=== PATIENT | female | born 1985 | race Caucasian/White ===

== ENCOUNTER 2017-01-04 20:38 | Emergency (ER) | payer OTHER ==
[~2017-01-04] VITALS: Ht 167.6 cm; Wt 73.0 kg
[~2017-01-04 20:38] MED LIST: AMIT10TA6 PO; CLON1TAB3 PO; HYDR25TA5 PO; LEVO25TA5 PO; NZRSHM TOP; TOPI25TA55 PO
[2017-01-04 20:40] VITALS: TEMP 36.9; Ht 167.6 cm; Wt 73.0 kg
[2017-01-04] MEDS ORDERED: AMOXICILLIN 250 MG CAP PO STA (20:51)
[2017-01-04] MEDS ORDERED: BENZOCAINE 20% (ORAJEL) 11.9 GM TUBE MT STA (20:51)
[2017-01-04] MEDS ORDERED: KETOROLAC TROMETHAMINE 60 MG/2 ML VIAL IM STA (20:51)
--- NOTE | 2017-01-04 21:42 | DIAGNOSTIC IMAGING REPORT ---
RIGHT SHOULDER 3 VIEWS HISTORY: Right shoulder pain. COMPARISON: Right shoulder 07/21/2014. FINDINGS: There is no fracture or dislocation. Soft tissues are unremarkable. No radiopaque foreign bodies. Postoperative changes again seen within the glenoid. The right clavicle is intact. IMPRESSION: No fractures. Electronically signed by: Stuart So M.D. 01/04/2017 9:40 PM Dictated Date/Time: 01/04/2017 9:39 PM
[2017-01-04] MEDS ORDERED: OXYCODONE IR HOME PACK PO ONE (21:45)
[2017-01-04] MEDS ORDERED: AMOX500C3 PO (21:45)
[2017-01-04 21:54] VITALS: BP 152/101; PULSE 111; O2SAT 98
--- NOTE | 2017-01-04 23:57 | EMERGENCY ROOM VISIT NOTE ---
History First contact with patient: 20:46 Chief Complaint: SHOULDER PAIN Stated Complaint: ABCESS TOOTH,SHOULDER PAIN AND NUMBNESS History of Present Illness The patient is a 31 year old female who presents to the Emergency Room with complaints of dental pain for the past several days is gotten progressively worse who has not seen a dentist in over a year and right shoulder pain after her daughter fell on her. She described pain as aching, ranging in severity 6 out of 10. Nothing makes it better or worse. Patient denies chest pain, neck pain, back pain, clavicular pain, elbow pain, numbness, tingling, dyspnea, fever , chills, facial swelling, vomiting, diarrhea, neck stiffness, weakness. She is tolerate by mouth fluids and food. Patient does see orthopedics. She's had prior surgery on this right shoulder. Review of Systems See HPI for pertinent positives & negatives. A total of 10 systems reviewed and were otherwise negative. Past Medical/Surgical History Medical Problems: (1) Chronic low back pain (2) Hypothyroidism (3) Migraine Social History Smoking Status: Current Every Day Smoker Alcohol Use: none Marital Status: single Housing Status: other Occupation Status: unemployed Current/Historical Medications Scheduled Amoxicillin (Amoxil), 500 MG PO TID Scheduled PRN Ibuprofen (Motrin), 800 MG PO Q8H PRN for Migraine Allergies Coded Allergies: Cephalexin (Verified Allergy, Unknown, Mood swings, hives, 10/03/14) Codeine (Verified Allergy, Unknown, vomiting, 10/03/14) Physical Exam Vital Signs Date Time Temp Pulse Resp B/P Pulse Ox O2 Delivery O2 Flow Rate FiO2 01/04/17 21:54 111 20 152/101 98 Room Air 01/04/17 20:40 36.9 111 20 152/102 99 Pain Rating (0-10): 4.0 Physical Exam VITALS: Vitals are noted on the nurse's note and reviewed by myself. Vital signs stable. GENERAL: Pleasant female, in no acute distress, nondiaphoretic, well-developed well-nourished. SKIN: The skin was without rashes, erythema, edema, or bruising. There is no tenting of the skin. Capillary reflex less than 2 seconds. HEAD: Normocephalic atraumatic. EARS: External auditory canals clear, tympanic membranes pearly may without erythema or effusion bilaterally. EYES: Pupils equal round and reactive to light and accommodation. Conjunctivae without injection, sclerae without icterus. Extraocular movements intact. NOSE: Patent, turbinates without inflammation or discharge. No sinus tenderness. MOUTH: Mucous membranes moist. Pharynx without erythema or exudate. Uvula midline. Airway patent. Tongue does not deviate. Dental exam: Multiple missing teeth with extensive dental decay with no palpable abscess. no signs of Bishnu angina NECK: Supple without nuchal rigidity. No lymphadenopathy. No thyromegaly. Cervical spine is nontender. No JVD. HEART: Regular rate and rhythm without murmurs gallops or rubs. LUNGS: Clear to auscultation bilaterally without wheezes, rales or rhonchi. No dullness to percussion. No retractions or accessory muscle use. ABDOMEN: Positive bowel sounds x 4. Normal tympanic percussion. Soft, nontender, without masses or organomegaly. Urbano sign negative. No guarding or rebound tenderness. MUSCULOSKELETAL: No muscle atrophy, erythema, or edema noted. Right shoulder tender to palpation with increased pain, no clavicular pain, no humeral pain, no elbow pain. Full range of motion with increased pain. NEURO: Patient was alert and oriented to person place and time. Normal sensation to light and sharp touch. No focal neurological deficits. Medical Decision & Procedures Medications Administered Medications (Trade) Dose Ordered Sig/Lucy Route Start Time Stop Time Status Last Admin Dose Admin Ketorolac Tromethamine (Toradol Inj) 60 mg NOW STAT IM 01/04/17 20:51 01/04/17 20:52 DC 01/04/17 21:46 60 MG Amoxicillin (Amoxil Cap) 500 mg NOW STAT PO 01/04/17 20:51 01/04/17 20:52 DC 01/04/17 21:46 500 MG Benzocaine (Orajel 2% Oral Gel) 1 appln NOW STAT MT 01/04/17 20:51 01/04/17 20:52 DC 01/04/17 21:46 1 APPLN Oxycodone HCl (Roxicodone Immediate Rel 5MG Home Pack) 1 homepack UD ONCE PO 01/04/17 21:45 01/04/17 21:46 DC 01/04/17 21:52 1 HOMEPACK ED Course Prior records reviewed and summarized as above. Triage Nursing notes reviewed. The patient's history was concerning for dental pain and shoulder pain Differential diagnosis: Etiologies such as cellulitis, abscess, Bishnu angina, gingivitis, sprain, strain, fracture, as well as others were entertained.. Physical examination: The physical examination was consistent with dental pain from dental caries and right shoulder pain from daughter falling on her ER treatment provided: Amoxicillin, oral gel, Toradol On reassessment the patient felt better. Diagnostics interpreted by me: Imaging studies: RIGHT SHOULDER 3 VIEWS HISTORY: Right shoulder pain. COMPARISON: Right shoulder 07/21/2014. FINDINGS: There is no fracture or dislocation. Soft tissues are unremarkable. No radiopaque foreign bodies. Postoperative changes again seen within the glenoid. The right clavicle is intact. IMPRESSION: No fractures. Electronically signed by: Stuart So M.D. This appears to be and dental pain from dental caries and right shoulder injury. Patient is advised follow-up with her orthopedist in a few days and to see the dentist. She is counseled on proper dental hygiene. Patient was neurovascularly and neurologic intact. No signs of airway compromise or Bishnu angina. She is advised take medications as directed and to follow-up as directed and to return to the ER immediately for fevers, severe pain, facial sign, no numbness, tingling, worsening signs or symptoms or as needed. By the evaluation outlined above emergent etiologies such as abscess, Bishnu angina, fracture, as well as others were deemed relatively unlikely. The pt informed about the findings as listed above. All questions were answered and pleased with the treatment. Return instructions were outlined and the patient was discharged in stable condition. Outpatient prescription management: Amoxicillin Referral: The patient was referred back to dentist and orthopedics for follow-up in 2 to 3 days for a recheck of the current condition. Medical Decision As above Impression Primary Impression: Dental cavities Additional Impressions: Right shoulder pain Pain, dental Departure Information Dispostion Home / Self-Care Condition GOOD Prescriptions Amoxicillin (AMOXIL) 500 Mg Cap 500 MG PO TID, #30 CAP Prov: Lanie Javier .NICOLA 01/04/17 Forms HOME CARE DOCUMENTATION FORM, IMPORTANT VISIT INFORMATION Patient Instructions Visit Dental, [facility] Additional Instructions Amoxicillin 500mg: Take one pill 3 times daily for 10 days for your infection. All antibiotics can cause diarrhea. If this occurs and you feel worse or it does not resolve in 1-2 days follow up with your doctor or return to the Emergency Department as this could be signs of serious underlying problems. Any medication can cause an allergic reaction, stop the pills immediately and return to the ER for rash, hives, breathing difficulties, or swelling. Oxycodone (OxyIR) 5mg: Take 1-2 pills every four hours for breakthrough pain. Avoid alcohol, operating machinery or dangerous equipment, working on ladders or roofs, DRIVING, or situations where being under the influence may be dangerous. It is recommended to use an [id number] stool softener such as Colace, 100mg twice daily while taking this medication to avoid constipation. Ibuprofen(Motrin, Advil) may be used for fever or pain. Use 600mg every six hours as needed. Take with food. Avoid using more than 2400mg in a 24 hour period. Do not use 2400mg per day for more than three consecutive days without physician direction. Prolonged inappropriate use can lead to stomach upset or ulcers. This medication can be taken if you need to drive, work, or perform activities which may be dangerous when taking narcotic pain medication. (AND/OR) Acetaminophen(Tylenol) may be used for fever or pain. Use 1000mg every six hours as needed. Avoid using more than 3000mg in a 24 hour period. This medication can be taken if you need to drive, work, or perform activities which may be dangerous when taking narcotic pain medication. Sawyer teeth twice a day, floss daily and do warm saltwater gargles 3 times a day. See a dentist as soon as possible for definitive care for your dental problem. Return to ER sooner for facial swelling, fever, redness, worsening signs or symptoms or as needed. See your orthopedist for your ongoing shoulder problems. Return to ER sooner for severe pain, numbness, tingling, worsening signs or symptoms or as needed. Problem Qualifiers Additional Impressions: Right shoulder pain Chronicity: acute Qualified Codes: M25.511 - Pain in right shoulder
[2017-02-04] MEDS ORDERED: IBUP-1428 PO (21:10)
== END 2017-01-04 22:07 | disposition home or self-care (01) ==
LOC: C.EDB 20:40 → C.EDD 22:07
DX: K02.9 Dental caries, unspecified (principal); M25.511 Pain in right shoulder; K08.89 Other specified disorders of teeth and supporting structures; E03.9 Hypothyroidism, unspecified; G89.29 Other chronic pain; F17.200 Nicotine dependence, unspecified, uncomplicated; Z88.5 Allergy status to narcotic agent; Z88.8 Allergy status to other drugs, medicaments and biological substances

== ENCOUNTER 2017-02-04 22:14 | Emergency (ER) | payer OTHER ==
[~2017-02-04] VITALS: Ht 167.6 cm; Wt 73.4 kg
[~2017-02-04 22:14] MED LIST changes: -AMIT10TA6 PO; -CLON1TAB3 PO; -HYDR25TA5 PO; +IBUP-1428 PO; -LEVO25TA5 PO; -NZRSHM TOP; -TOPI25TA55 PO
[2017-02-04 22:16] VITALS: TEMP 36.7; Ht 167.6 cm; Wt 73.4 kg
[2017-02-04] MEDS ORDERED: PSEUDOEPHEDRINE HCL 30 MG TAB PO STA (22:25)
[2017-02-04] MEDS ORDERED: OXYCODONE IR HOME PACK PO ONE (22:30)
[2017-02-04] MEDS ORDERED: OXYMETAZOLINE HCL 0.05% NA SPR 15 ML BTL ONE (22:30)
[2017-02-04] MEDS ORDERED: AMOXICIL/CLAVU 875MG HOME PACK PO ONE (22:30)
[2017-02-04] MEDS ORDERED: AMOX875T PO (22:31)
[2017-02-04] MEDS ORDERED: PSEU30TA20 PO (22:31)
[2017-02-04 22:56] VITALS: BP 130/97; PULSE 99; O2SAT 100
--- NOTE | 2017-02-05 05:19 | EMERGENCY ROOM VISIT NOTE ---
History First contact with patient: 22:21 Chief Complaint: SINUS CONGESTION/PRESSURE Stated Complaint: SINUS PRESURE, EAR, JAW, MOUTH PAIN Nursing Triage Summary: sinus congestion and mouth abcess History of Present Illness The patient is a 32 year old female who presents to the Emergency Room with complaints of sinus pain and congestion for the past several days who has a ongoing dental infection and has an appointment this month with dentistry down in [place] for dental extraction. Patient has yellow-green nasal discharge. Subjective fever and chills. Patient feels as if she has a sinus infection again. Patient denies chest pain, dyspnea, sore throat, neck stiffness, abdominal pain, earache, vomiting, diarrhea, facial swelling. Review of Systems See HPI for pertinent positives & negatives. A total of 10 systems reviewed and were otherwise negative. Past Medical/Surgical History Medical Problems: (1) Chronic low back pain (2) Hypothyroidism (3) Migraine Social History Smoking Status: Current Every Day Smoker Alcohol Use: none Marital Status: single Housing Status: other Occupation Status: unemployed Current/Historical Medications Scheduled Amoxicillin & Pot Clavulanate (Augmentin 875-125 mg), 1 TAB PO BID Pseudoephedrine (Sudafed), 60 MG PO Q6 Scheduled PRN Ibuprofen (Motrin), 800 MG PO Q8H PRN for Migraine Allergies Coded Allergies: Cephalexin (Verified Allergy, Unknown, Mood swings, hives, 10/03/14) Codeine (Verified Allergy, Unknown, vomiting, 10/03/14) Physical Exam Vital Signs Date Time Temp Pulse Resp B/P (MAP) Pulse Ox O2 Delivery O2 Flow Rate FiO2 02/04/17 22:56 99 16 130/97 100 02/04/17 22:16 36.7 107 16 145/106 100 Room Air Pain Rating (0-10): 5.0 Physical Exam VITALS: Vitals are noted on the nurse's note and reviewed by myself. Vital signs hypertensive GENERAL: Pleasant female, in no acute distress, nondiaphoretic, well-developed well-nourished. SKIN: The skin was without rashes, erythema, edema, or bruising. There is no tenting of the skin. Capillary reflex less than 2 seconds. HEAD: Normocephalic atraumatic. EARS: External auditory canals clear, tympanic membranes pearly may without erythema or effusion bilaterally. EYES: Pupils equal round and reactive to light and accommodation. Conjunctivae without injection, sclerae without icterus. Extraocular movements intact. NOSE: Patent, turbinates without inflammation or discharge. Bilateral maxillary sinus tenderness. MOUTH: Mucous membranes moist. Pharynx without erythema or exudate. Uvula midline. Airway patent. Tongue does not deviate. Dental exam: Multiple missing teeth with no palpable abscess dental decay. No Bishnu angina NECK: Supple without nuchal rigidity. No lymphadenopathy. No thyromegaly. Cervical spine is nontender. No JVD. No meningeal signs HEART: Regular rate and rhythm without murmurs gallops or rubs. LUNGS: Clear to auscultation bilaterally without wheezes, rales or rhonchi. No dullness to percussion. No retractions or accessory muscle use. ABDOMEN: Positive bowel sounds x 4. Normal tympanic percussion. Soft, nontender, without masses or organomegaly. Urbano sign negative. No guarding or rebound tenderness. MUSCULOSKELETAL: No muscle atrophy, erythema, or edema noted. NEURO: Patient was alert and oriented to person place and time. Normal sensation to light and sharp touch. No focal neurological deficits. Medical Decision & Procedures Medications Administered Medications (Trade) Dose Ordered Sig/Lucy Route Start Time Stop Time Status Last Admin Dose Admin Amoxicillin/ Clavulanate Potassium (Augmentin 875MG Home Pack) 1 homepack UD ONCE PO 02/04/17 22:30 02/04/17 22:31 DC 02/04/17 22:50 1 HOMEPACK Pseudoephedrine HCl (Sudafed Tab) 60 mg NOW STAT PO 02/04/17 22:25 02/04/17 22:27 DC 02/04/17 22:50 60 MG Oxycodone HCl (Roxicodone Immediate Rel 5MG Home Pack) 1 homepack UD ONCE PO 02/04/17 22:30 02/04/17 22:31 DC 02/04/17 22:50 1 HOMEPACK Oxymetazoline HCl (Afrin 0.05% Nasal [place]) 1 sprays NOW ONCE NA 02/04/17 22:30 02/04/17 22:31 DC 02/04/17 22:50 1 SPRAYS ED Course Prior records reviewed and summarized as above. Triage Nursing notes reviewed. The patient's history was concerning for sinus pain with dental infection Differential diagnosis: Etiologies such as cellulitis, abscess, sinusitis, Bishnu angina, gingivitis, viral infection, otitis, as well as others were entertained.. Physical examination: The physical examination was consistent with sinusitis with dental infection ER treatment provided: Augmentin On reassessment the patient felt better. Diagnostics interpreted by me: Deferred This appears to be sinusitis with ongoing dental infection. Patient was started on antibiotics. She is advised to follow-up as scheduled with dentistry and family care doctor in a few days or here in the ER sooner for high fevers, neck stiffness, facial swelling, worsening signs or symptoms or as needed. Patient no signs of meningitis. She is well-appearing. By the evaluation outlined above emergent etiologies such as abscess, Bishnu angina, as well as others were deemed relatively unlikely. The pt informed about the findings as listed above. All questions were answered and pleased with the treatment. Return instructions were outlined and the patient was discharged in stable condition. Outpatient prescription management: Augmentin Referral: The patient was referred back to the dentist and primary care physician for follow-up in 2 to 3 days for a recheck of the current condition. Medical Decision As above Impression Primary Impression: Acute maxillary sinusitis Additional Impression: Dental caries Departure Information Dispostion Home / Self-Care Condition FAIR Prescriptions Pseudoephedrine (Sudafed) 30 Mg Tab 60 MG PO Q6, #20 TAB Prov: Lanie Javier PA-C 02/04/17 Amoxicillin & Pot Clavulanate (Augmentin 875-125 mg) 1 Tab Tab 1 TAB PO BID for 9 Days, #18 TAB Prov: Lanie Javier .NICOLA 02/04/17 Forms WORK / SCHOOL INSTRUCTIONS, HOME CARE DOCUMENTATION FORM, IMPORTANT VISIT INFORMATION Patient Instructions Sinusitis Acute, Visit Dental, [facility] Additional Instructions Augmentin 875 mg: Take one pill 2 times daily for 10 days for your infection. All antibiotics can cause diarrhea. If this occurs and you feel worse or it does not resolve in 1-2 days follow up with your doctor or return to the Emergency Department as this could be signs of serious underlying problems. Any medication can cause an allergic reaction, stop the pills immediately and return to the ER for rash, hives, breathing difficulties, or swelling. Afrin nasal spray: 2-3 sprays to each nostril twice daily as needed for congestion. Do not use for more than 3-4 days because it can lead to worsening rebound congestion. Pseudoephedrine(Sudaphed): 30-60mg every 6 hours as needed for nasal congestion. Do not take this with other stimulant products or supplements. Rest and drink plenty of fluids. Controlling your fever with Tylenol and Ibuprofen as above will make you feel better. Wash your hands after nose blowing, sneezing, or coughing. Most germs are spread through contact, therefore improper hygiene may result in your close contacts and loved ones becoming ill just like you. Continue current medications. Oxycodone (OxyIR) 5mg: Take 1-2 pills every four hours for breakthrough pain. Avoid alcohol, operating machinery or dangerous equipment, working on ladders or roofs, DRIVING, or situations where being under the influence may be dangerous. It is recommended to use an [id number]-[id number] stool softener such as Colace, 100mg twice daily while taking this medication to avoid constipation. Ibuprofen(Motrin, Advil) may be used for fever or pain. Use 600mg every six hours as needed. Take with food. Avoid using more than 2400mg in a 24 hour period. Do not use 2400mg per day for more than three consecutive days without physician direction. Prolonged inappropriate use can lead to stomach upset or ulcers. This medication can be taken if you need to drive, work, or perform activities which may be dangerous when taking narcotic pain medication. (AND/OR) Acetaminophen(Tylenol) may be used for fever or pain. Use 1000mg every six hours as needed. Avoid using more than 3000mg in a 24 hour period. This medication can be taken if you need to drive, work, or perform activities which may be dangerous when taking narcotic pain medication. Ecru teeth twice a day, floss daily and do warm saltwater gargles 3 times a day. See a dentist as soon as possible for definitive care for your dental problem. Return to ER sooner for facial swelling, fever, redness, worsening signs or symptoms or as needed. and Return to the ER for severe headache, neck stiffness, chest pain, difficulty breathing, fevers, vomiting, worsening of your condition, or as needed. Follow up with your primary physician this week for a recheck of your current condition. Problem Qualifiers Primary Impression: Acute maxillary sinusitis Recurrence: recurrent Qualified Codes: J01.01 - Acute recurrent maxillary sinusitis
== END 2017-02-04 22:55 | disposition home or self-care (01) ==
LOC: C.EDB 22:16 → C.EDA 22:55
DX: J01.01 Acute recurrent maxillary sinusitis (principal); K02.9 Dental caries, unspecified; M54.5 Low back pain; G89.29 Other chronic pain; E03.9 Hypothyroidism, unspecified; F17.210 Nicotine dependence, cigarettes, uncomplicated

== ENCOUNTER 2017-03-16 16:28 | Emergency (ER) | payer OTHER ==
[~2017-03-16] VITALS: Ht 167.6 cm; Wt 73.1 kg
[~2017-03-16 16:28] MED LIST changes: +PSEU30TA20 PO
[2017-03-16 16:37] VITALS: Ht 167.6 cm; Wt 73.1 kg
[2017-03-16] MEDS ORDERED: ACET325T96 PO (16:46)
[2017-03-16] MEDS ORDERED: AMOXICILLIN/CLAVULANATE TAB 875 MG TAB PO STA (16:57)
[2017-03-16] MEDS ORDERED: HYDROCODONE/ACETAMOPHEN 5/325MG TAB PO STA (16:57)
[2017-03-16] MEDS ORDERED: AMOX875T PO (17:00)
[2017-03-16] MEDS ORDERED: HYDR-5688 PO (17:00)
--- NOTE | 2017-03-16 17:02 | EMERGENCY ROOM VISIT NOTE ---
ED Visit Note First contact with patient: 16:43 CHIEF COMPLAINT: Toothache HISTORY OF PRESENT ILLNESS: This 32-year-old female patient presented to the emergency department via private vehicle with a progressive toothache for past 2 weeks. The patient believes it is coming from left upper dentition. The pain is now steady and severe and radiates to the face. The patient has a dentist appointment set up for April 19. They rate their pain a 9/10 and the ibuprofen and Tylenol they have been taking has not relieved the pain. Denies facial swelling or fever. The patient denies any discharge from the mouth. REVIEW OF SYSTEMS: A 6 system review of systems was completed with positives and pertinent negatives listed in the HPI. ALLERGIES: as noted below MEDICATIONS: as noted below PMH: Bronchitis, Tubal ligation, depression, anxiety SOCIAL HISTORY: Lives at home with parents and son PHYSICAL EXAM: Vitals are noted on the nurse's note and reviewed by myself. Vital signs stable. Temperature 36.8C orally. GENERAL: 32 year old female, in no acute distress, nondiaphoretic, well-developed well-nourished. Mouth: The left upper dentition is very carious and the gum is swollen and tender around it, without any discharge or signs of an abscess. The remainder of the pharynx and tonsils are without erythema, edema, or exudate. The airway is patent. There is no facial swelling, cervical or submandibular lymphadenopathy. The patient appears uncomfortable and in pain. The patient has overall poor dental hygiene. EARS: External auditory canals clear, tympanic membranes pearly may without erythema or effusion bilaterally. ED COURSE: Patient was seen and evaluated as above. After obtaining a thorough history and physical examination was evident the patient is likely experiencing pain secondary to poor dentalgia. No evidence of abscess. No evidence of Bishnu angina, or encephalitis on exam. She'll be discharged home on a course of amoxicillin/cold-like acid, she notes that she can tolerate penicillins. The patient she'll be given [place]. She was checked in the intensive any drug monitoring system, no red flags were identified. She indicated that despite her codeine allergy, she can tolerate this medication. She has an appointment scheduled for April 19 with her dentist. She is to return with worsening. She was educated upon worrisome symptoms which return, had questions answered prior to discharge, and was discharged home in good condition. In the evaluation and treatment of this patient, the following differential diagnoses were considered: Periapical Abscess, Osteonecrosis of the Jaw, Dental Fracture, Dental Caries, Bishnu's Angina, Vincent's Angina, Facial Cellulitis. Problem List Medical Problems: (1) Chronic low back pain Status: Chronic (2) Hypothyroidism Status: Chronic (3) Migraine Status: Chronic Current/Historical Medications Scheduled Acetaminophen Tab (Tylenol), 650 MG PO UD Amoxicillin & Pot Clavulanate (Augmentin 875-125 mg), 1 TAB PO BID Scheduled PRN Hydrocodone/Acetaminophen 5MG/325MG ([place] 5MG/325MG), 1-2 TABLET PO Q6 PRN for Pain Ibuprofen (Motrin), 800 MG PO Q8H PRN for Migraine Allergies Coded Allergies: Clindamycin (Unverified Allergy, Intermediate, RASH/ITCHNG, 03/16/17) Cephalexin (Verified Allergy, Unknown, Mood swings, hives, 03/16/17) Codeine (Verified Allergy, Unknown, vomiting, 03/16/17) Vital Signs Date Time Temp Pulse Resp B/P (MAP) Pulse Ox O2 Delivery O2 Flow Rate FiO2 03/16/17 17:16 36.8 81 18 142/91 99 03/16/17 17:15 81 18 142/91 99 Room Air 03/16/17 16:37 36.8 89 18 150/99 99 Room Air Medications Administered Medications (Trade) Dose Ordered Sig/Lucy Route Start Time Stop Time Status Last Admin Dose Admin Acetaminophen/ Hydrocodone Bitart ([place] 5/325 Tab) 1 tab NOW STAT PO 03/16/17 16:57 03/16/17 16:59 DC 03/16/17 17:09 1 TAB Amoxicillin/ Clavulanate Potassium (Augmentin Tab) 875 mg NOW STAT PO 03/16/17 16:57 03/16/17 16:59 DC 03/16/17 17:09 875 MG Departure Information Impression Primary Impression: Tooth pain with chewing Additional Impression: Dental caries Dispostion Home / Self-Care Condition GOOD Prescriptions Amoxicillin & Pot Clavulanate (Augmentin 875-125 mg) 1 Tab Tab 1 TAB PO BID for 10 Days, #20 TAB Prov: Miguel Walker, PAAida 03/16/17 Hydrocodone/Acetaminophen 5MG/325MG ([place] 5MG/325MG) Tab 1-2 TABLET PO Q6 Y for Pain, #15 TAB For Initial Treatment Prov: Miguel Walker PA-C 03/16/17 Referrals No Doctor, Assigned (PCP) Patient Instructions My [facility] Additional Instructions You have been treated in the Emergency Department for Dental Pain. You have received pain medicine in the emergency department which impairs your ability to operate a vehicle. It is illegal for you to drive after receiving these medicines. You have been prescribed NORCO to be used for pain control. This is a narcotic medication. You cannot drive or consume alcohol while on this medicine. This medicine should only be used for pain that cannot be controlled with over-the- counter pain medicines. PLEASE NO TYLENOL WITH THIS!! You were prescribed Augmentin to be taken every 12 hours. This is an antibiotic. All antibiotics have the potential to cause diarrhea. Stop this medication and contact a medical provider if you were to develop any significant adverse side effects including: wheezing, shortness of breath, passing out, vomiting, or a diffuse rash. Always take antibiotics as directed and COMPLETE the ENTIRE course regardless of the improvement of your symptoms. For pain control, you can use the following jfch-tjt-vownzbf medicines (if >12 yo): - Regular strength (325mg/tab) Tylenol (acetaminophen) 2 tabs every 4-6 hours as needed. Do not exceed 12 tablets in a 24 hour period. Avoid taking more than 3 grams (3000 mg) of Tylenol per day. This includes any other sources of acetaminophen you may take on a regular basis. No tylenol with the norco!! - Regular strength (200 mg/tab) Advil (ibuprofen) 1-2 tabs every 4-6 hours as needed. Do not exceed a dose of 3200 mg per day. Refrain from smoking cigarettes or using chewing tobacco until you have been evaluated by your dentist. Keeping beverages lukewarm and consuming soft foods can decrease your pain. Warm compresses over the affected area may offer some relief. You MUST seek evaluation of your dental pain by a dentist following your visit to the Emergency Department. The Emergency Department is not capable of treating dental issues long-term. You should call your dentist as soon as possible to make an appointment for evaluation of your dental pain. Return to the emergency department if you develop the following symptoms despite treatment course outlined above: fever, intractable pain, increased redness, swelling, or purulent discharge. Please keep your appointment with the dentist. Please return to the emergency department any new/concerning symptoms. Problem Qualifiers
[2017-03-16 17:16] VITALS: BP 142/91; PULSE 81; TEMP 36.8; O2SAT 99
== END 2017-03-16 17:17 | disposition home or self-care (01) ==
LOC: C.EDB 16:30 → C.EDD 17:17
DX: K08.89 Other specified disorders of teeth and supporting structures (principal); K02.9 Dental caries, unspecified; E03.9 Hypothyroidism, unspecified; M54.5 Low back pain

== ENCOUNTER 2017-03-31 16:34 | Emergency (ER) | payer OTHER ==
[~2017-03-31] VITALS: Ht 167.6 cm; Wt 73.4 kg
[~2017-03-31 16:34] MED LIST changes: +ACET325T96 PO; +HYDR-5688 PO; -PSEU30TA20 PO
[2017-03-31 17:12] VITALS: TEMP 36.8; Ht 167.6 cm; Wt 73.4 kg
[2017-03-31] MEDS ORDERED: PENI500T2 PO (17:48)
[2017-03-31] MEDS ORDERED: HYDR-5688 PO (17:48)
--- NOTE | 2017-03-31 17:49 | EMERGENCY ROOM VISIT NOTE ---
ED Visit Note First contact with patient: 17:22 CHIEF COMPLAINT: Toothache, fever HISTORY OF PRESENT ILLNESS: This 32-year-old female patient presented to the emergency department, ambulatory, with a progressive toothache for past 2 months. The patient believes it is coming from an abscess in her left upper gum. The pain is now steady and severe and radiates to the face. The patient states she did have a fever of 102.3F this morning. She took Tylenol at that time for her fever and pain, which did help bring the fever down, but did not help with the pain as much. The patient went to work this morning, and states she feels that the "bubble popped" while at work. The patient was seen here earlier this month for the same problem and was prescribed antibiotics and pain medication at that time. The patient does have a dentist appointment set up on April 06. They rate their pain a 8/10 and the ibuprofen and Tylenol they have been taking has not relieved the pain. Denies facial swelling, but does feel that the swelling is radiating around her face. The patient denies any discharge from the mouth. REVIEW OF SYSTEMS: A 6 system review of systems was completed with positives and pertinent negatives listed in the HPI. ALLERGIES: Cephalexin, clindamycin MEDICATIONS: None PMH: Dental abscess SOCIAL HISTORY: Was locally with family. She denies drug, alcohol use. The patient states she does smoke one half pack cigarettes per day. PHYSICAL EXAM: Vitals are noted on the nurse's note and reviewed by myself. Vital signs stable. Temperature 36.8C orally. GENERAL: This is a otherwise healthy, 32-year-old female, in no acute distress, nondiaphoretic, well- developed well-nourished. Mouth: The #11 and #12 teeth is very carious and the gum is swollen and tender around it, without any discharge. There is a possible small abscess on palpation of the upper gum. The remainder of the pharynx and tonsils are without erythema, edema, or exudate. The airway is patent. There is no facial swelling, cervical or submandibular lymphadenopathy. The patient appears uncomfortable and in pain. The patient has overall poor dental hygiene. EARS: External auditory canals clear, tympanic membranes pearly may without erythema or effusion bilaterally. ED COURSE: She was seen and evaluated as above. I discussed with her management of dental abscesses including antibiotics and pain medication. I discussed with the patient the importance of keeping her appointment with the dentist next week, as the emergency department is not the most appropriate place for obtaining care regarding dental infections. The patient was in agreement with the plan of care at this time. The patient was discharged home in good condition. DIFFERENTIAL DIAGNOSIS: Dental abscess, odontalgia, malignancy, acute sinusitis , and others DIAGNOSIS: Dental abscess DISCHARGE INSTRUCTIONS & TREATMENT: You have been treated in the Emergency Department for Dental Pain. You have been prescribed [place] to be used for pain control. This is a narcotic medication. You cannot drive or consume alcohol while on this medicine. This medicine should only be used for pain that cannot be controlled with over-the- counter pain medicines. You were prescribed PEN VK to be taken 3 times daily. This is an antibiotic. All antibiotics have the potential to cause diarrhea. Stop this medication and contact a medical provider if you were to develop any significant adverse side effects including: wheezing, shortness of breath, passing out, vomiting, or a diffuse rash. Always take antibiotics as directed and COMPLETE the ENTIRE course regardless of the improvement of your symptoms. For pain control, you can use the following gvwd-gkn-rqgheny medicines (if >12 yo): - Regular strength (325mg/tab) Tylenol (acetaminophen) 2 tabs every 4-6 hours as needed. Do not exceed 12 tablets in a 24 hour period. Avoid taking more than 4 grams (4000 mg) of Tylenol per day. This includes any other sources of acetaminophen you may take on a regular basis. - Regular strength (200 mg/tab) Advil (ibuprofen) 1-2 tabs every 4-6 hours as needed. Do not exceed a dose of 3200 mg per day. Refrain from smoking cigarettes or using chewing tobacco until you have been evaluated by your dentist. Keeping beverages lukewarm and consuming soft foods can decrease your pain. Warm compresses over the affected area may offer some relief. You MUST seek evaluation of your dental pain by a dentist following your visit to the Emergency Department. The Emergency Department is not capable of treating dental issues long-term. You should call your dentist as soon as possible to make an appointment for evaluation of your dental pain. Return to the emergency department if you develop the following symptoms despite treatment course outlined above: fever, intractable pain, increased redness, swelling, or purulent discharge. Problem List Medical Problems: (1) Chronic low back pain Status: Chronic (2) Hypothyroidism Status: Chronic (3) Migraine Status: Chronic Current/Historical Medications Scheduled Acetaminophen Tab (Tylenol), 650 MG PO UD Penicillin V Potassium (Veetids), 500 MG PO TID Scheduled PRN Hydrocodone/Acetaminophen 5MG/325MG ([place] 5MG/325MG), 1 TABLET PO Q6H PRN for Pain Ibuprofen (Motrin), 800 MG PO Q8H PRN for Migraine Allergies Coded Allergies: Clindamycin (Unverified Allergy, Intermediate, RASH/ITCHNG, 03/31/17) Cephalexin (Verified Allergy, Unknown, Mood swings, hives, 03/31/17) Codeine (Verified Allergy, Unknown, vomiting, 03/31/17) Vital Signs Date Time Temp Pulse Resp B/P (MAP) Pulse Ox O2 Delivery O2 Flow Rate FiO2 03/31/17 17:12 36.8 93 18 163/107 100 Room Air Departure Information Impression Primary Impression: Periapical abscess Dispostion Home / Self-Care Condition GOOD Prescriptions Hydrocodone/Acetaminophen 5MG/325MG ([place] 5MG/325MG) Tab 1 TABLET PO Q6H Y for Pain, #12 TAB For Initial Treatment Prov: Meche Flanneyr PA-C 03/31/17 Penicillin V Potassium (VEETIDS) 500 Mg Tab 500 MG PO TID for 10 Days, #30 TAB Prov: Meche Flannery PA-C 03/31/17 Referrals Jose Philip [facility] (PCP) Patient Instructions ED Abscess Dental, [facility] Additional Instructions You have been treated in the Emergency Department for Dental Pain. You have been prescribed [place] to be used for pain control. This is a narcotic medication. You cannot drive or consume alcohol while on this medicine. This medicine should only be used for pain that cannot be controlled with over-the- counter pain medicines. You were prescribed PEN VK to be taken 3 times daily. This is an antibiotic. All antibiotics have the potential to cause diarrhea. Stop this medication and contact a medical provider if you were to develop any significant adverse side effects including: wheezing, shortness of breath, passing out, vomiting, or a diffuse rash. Always take antibiotics as directed and COMPLETE the ENTIRE course regardless of the improvement of your symptoms. For pain control, you can use the following nyiz-nzo-zawqlpi medicines (if >12 yo): - Regular strength (325mg/tab) Tylenol (acetaminophen) 2 tabs every 4-6 hours as needed. Do not exceed 12 tablets in a 24 hour period. Avoid taking more than 4 grams (4000 mg) of Tylenol per day. This includes any other sources of acetaminophen you may take on a regular basis. - Regular strength (200 mg/tab) Advil (ibuprofen) 1-2 tabs every 4-6 hours as needed. Do not exceed a dose of 3200 mg per day. Refrain from smoking cigarettes or using chewing tobacco until you have been evaluated by your dentist. Keeping beverages lukewarm and consuming soft foods can decrease your pain. Warm compresses over the affected area may offer some relief. You MUST seek evaluation of your dental pain by a dentist following your visit to the Emergency Department. The Emergency Department is not capable of treating dental issues long-term. You should call your dentist as soon as possible to make an appointment for evaluation of your dental pain. Return to the emergency department if you develop the following symptoms despite treatment course outlined above: fever, intractable pain, increased redness, swelling, or purulent discharge.
[2017-03-31 18:40] VITALS: BP 158/108; PULSE 86; O2SAT 100
== END 2017-03-31 18:40 | disposition home or self-care (01) ==
LOC: C.EDB 16:36 → C.EDD 18:40
DX: K04.7 Periapical abscess without sinus (principal); E03.9 Hypothyroidism, unspecified; G89.29 Other chronic pain; Z88.5 Allergy status to narcotic agent; Z88.8 Allergy status to other drugs, medicaments and biological substances

== ENCOUNTER 2017-04-12 09:15 | Emergency (ER) | payer OTHER ==
[~2017-04-12] VITALS: Ht 162.6 cm; Wt 74.0 kg
[2017-04-12 09:18] VITALS: TEMP 36.4; Ht 162.6 cm; Wt 74.0 kg
[2017-04-12] MEDS ORDERED: SODIUM CHLORIDE 0.9% 1000ML 1,000 ML IV ONE (09:45)
[2017-04-12] MEDS ORDERED: OXYC1TAB3 PO (09:58)
--- NOTE | 2017-04-12 10:12 | DIAGNOSTIC IMAGING REPORT ---
CHEST ONE VIEW PORTABLE HISTORY: near syncope COMPARISON: None. FINDINGS: The lungs are clear. Cardiac silhouette is normal in size. No pleural effusions. No pneumothorax. IMPRESSION: No acute process. Electronically signed by: Stuart So M.D. 04/12/2017 10:11 AM Dictated Date/Time: 04/12/2017 10:10 AM
[2017-04-12 10:16] LABS: URINE APPEARANCE CLEAR (CLEAR); URINE BILIRUBIN NEG (NEG); URINE COLOR DK YELLOW; URINE NITRITE NEG (NEG); URINE SPECIFIC GRAVITY 1.032 (1.000-1.030); UROBILINOGEN NEG (NEG)
[2017-04-12 10:21] LABS: MANUAL MICROSCOPIC REQUIRED? NO; REVIEW REQ? NO
[2017-04-12 10:32] LABS: BASO % 0.2 %; BASO ABS # 0.01 K/uL (0-0.2); COMPLETE YES; HEMATOCRIT 41.1 % (37-47); IG% 0.2 %; LYMPH % 43.6 %; LYMPH ABS # 1.97 K/uL (1.2-3.4); MEAN CELL VOLUME 94.1 fL (80-100); MEAN CORPUSCULAR HGB CONC 34.1 g/dl (32-36); MEAN PLATELET VOLUME 10.4 fL (7.4-10.4); PLATELET COUNT 196 K/uL (130-400); RED BLOOD COUNT 4.37 M/uL (4.2-5.4); WHITE BLOOD COUNT 4.52 K/uL (4.8-10.8)
[2017-04-12 10:53] LABS: BLOOD UREA NITROGEN 16 mg/dl (7-18); CREATININE 0.83 mg/dl (0.60-1.20); GLUCOSE 93 mg/dl (70-99)
[2017-04-12 10:54] LABS: ALT/SGPT 13 U/L (12-78); AST/SGOT 9 U/L (15-37); BUN/CREATININE RATIO 19.3 (10-20); CALCIUM 8.2 mg/dl (8.5-10.1); CARBON DIOXIDE 28 mmol/L (21-32); CHLORIDE 107 mmol/L (98-107); SODIUM 139 mmol/L (136-145)
[2017-04-12 10:56] LABS: ALKALINE PHOSPHATASE 63 U/L (45-117)
[2017-04-12 12:16] VITALS: BP 130/86; PULSE 72; O2SAT 96
--- NOTE | 2017-04-12 18:13 | EMERGENCY ROOM VISIT NOTE ---
ED Visit Note First contact with patient: 09:22 Chief Complaint: I feel shaky and like I'm going to pass out. History of Present Illness: Ms. Caceres is a 32-year-old white female who ambulates into the ED complaining of feeling ill and reports a near syncopal episode. Patient reports historically since she's been a child she has had multiple episodes of syncope. She reports she has had multiple tests but no cause of her syncope has been identified. Her last true syncopal episode was approximately 6 months ago. Patient reports she's been feeling fine over the last week. She reports she was driving to work today and noted spots in her visual farrar, she started feeling "shaky and sweaty and felt like she was going to pass out." This occurred approximately one hour before she arrived in the emergency department. Currently she reports she is still feeling shaky and nauseated but has had resolution of sensations of syncope, spots in her vision and diaphoresis. She has not taken any medications for her symptoms prior to arrival at the hospital. She did not identify any aggravating or alleviating factors related to her symptoms. She did not take any medications for her symptoms prior to arrival at the hospital. She denies any recent head injuries, dizziness, decreased vision, flashing lights in her visual farrar, hearing changes, difficulty speaking, difficulty swallowing, difficulty ambulating/coronary body movements, upper extremity weakness/numbness/tingling, chest pain, shortness of breath, palpitations, orthopnea, dependent edema, previous clots, claudication, cramping, abdominal pain, rectal bleeding, black/tarry stools, urinary symptoms, hematuria and . Review of Systems: As noted above in history of present illness. All body systems were reviewed and found to be negative as noted above. Past Medical History: As previously noted, bronchitis, unspecified urinary symptoms, depression, anxiety, status post tonsillectomy, adenoidectomy, bilateral myringotomy, tubal ligation, unspecified nasal and shoulder surgeries. Current Medications: Medications Dose Route/Sig Max Daily Dose Days Date Category Dose Instructions Roxicodone Ir (Oxycodone HCl) 5 Mg Tab 5 Mg PO UD PRN 04/12/17 Reported [place] 5MG/325MG (Acetaminophen/Hydrocodone Bitart) Tab 1 Tablet PO Q6H PRN 03/31/17 Rx For Initial Treatment Allergies to Medications: Cephalexin, codeine, clindamycin. Social History: Patient is currently employed; she feels safe in her home environment; she admits to tobacco use and denies alcohol use. Physical Examination: Vital Signs: Date Time Temp Pulse Resp B/P (MAP) Pulse Ox O2 Delivery O2 Flow Rate FiO2 04/12/17 12:16 72 20 130/86 96 04/12/17 10:45 66 18 131/94 100 Room Air 04/12/17 09:35 80 118/85 98 122/85 94 120/100 04/12/17 09:33 92 04/12/17 09:18 36.4 96 16 133/92 100 Room Air GENERAL: 32-year-old female in mild to moderate distress due to symptoms, nontoxic-appearing, afebrile and hemodynamically stable. NEUROLOGICAL: Awake, alert and oriented to person, place and time. Answering questions appropriately and following commands. Normal gait. Good hand eye coordination. No focal motor or sensory deficits. Cranial nerves II through XII grossly intact. Able to spell and count backwards, normal rapid alternate movements of the hands and fingers. Good short-term and long-term recall. SKIN: Warm, dry and pink. No soft tissue eruptions or trauma noted. HEENT: Atraumatic and normocephalic. PERRLA. EOMI without nystagmus. Sclera white and conjunctiva pink. Tympanic membranes are pearly may with normal light reflex. Pharynx is nonerythematous or edematous. Speech normal. No lymphadenopathy. No carotid bruits. Trachea midline. No jugular venous distention. BACK: No tenderness over the bony spine. No CVA tenderness. THORAX: Lungs sounds are clear to auscultation and equal bilaterally with symmetrical chest wall. No wheezing, rales or rhonchi. No crepitus, tenderness , subcutaneous air or deformities noted. HEART: Regular rate and rhythm. No gallops, rubs or murmurs are appreciated. ABDOMEN: Flat, soft and nontender. Positive bowel sounds in all quadrants. No guarding, rigidity or organomegaly. EXTREMITIES: Moves all extremities well on command and with purpose. All distal neurovascular statuses are intact and equal bilaterally. No calf tenderness or cords. ED Course: Patient is assessed as noted above. Patient's medication list was reviewed. Laboratory Testing: Test 04/12/17 09:33 04/12/17 09:40 04/12/17 10:11 Range/Units Bedside Glucose 82 70-90 mg/dl Urine Color DK YELLOW Urine Appearance CLEAR CLEAR Urine pH 5.0 4.5-7.5 Urine Specific [place] 1.032 1.000-1.030 Urine Protein NEG NEG Urine Glucose (UA) NEG NEG Urine Ketones TRACE NEG Urine Occult Blood NEG NEG Urine Nitrite NEG NEG Urine Bilirubin NEG NEG Urine Urobilinogen NEG NEG Urine Leukocyte Esterase NEG NEG Urine Test NEG NEG White Blood Count 4.52 4.8-10.8 K/uL Red Blood Count 4.37 4.2-5.4 M/uL Hemoglobin 14.0 12.0-16.0 g/dL Hematocrit 41.1 37-47 % Mean Corpuscular Volume 94.1 80-100 fL Mean Corpuscular Hemoglobin 32.0 25-34 pg Mean Corpuscular Hemoglobin Concent 34.1 32-36 g/dl Platelet Count 196 130-400 K/uL Mean Platelet Volume 10.4 7.4-10.4 fL Neutrophils (%) (Auto) 44.0 % Lymphocytes (%) (Auto) 43.6 % Monocytes (%) (Auto) 8.0 % Eosinophils (%) (Auto) 4.0 % Basophils (%) (Auto) 0.2 % Neutrophils # (Auto) 1.99 1.4-6.5 K/uL Lymphocytes # (Auto) 1.97 1.2-3.4 K/uL Monocytes # (Auto) 0.36 0.11-0.59 K/uL Eosinophils # (Auto) 0.18 0-0.5 K/uL Basophils # (Auto) 0.01 0-0.2 K/uL RDW Standard Deviation 42.4 36.4-46.3 fL RDW Coefficient of Variation 12.3 11.5-14.5 % Immature Granulocyte % (Auto) 0.2 % Immature Granulocyte # (Auto) 0.01 0.00-0.02 K/uL Sodium Level 139 136-145 mmol/L Potassium Level 4.0 3.5-5.1 mmol/L Chloride Level 107 98-107 mmol/L Carbon Dioxide Level 28 21-32 mmol/L Anion Gap 4.0 3-11 mmol/L Blood Urea Nitrogen 16 7-18 mg/dl Creatinine 0.83 0.60-1.20 mg/dl Est Creatinine Clear Calc Drug Dose 95.9 ml/min Estimated GFR () 108.1 Estimated GFR (Non- 93.3 BUN/Creatinine Ratio 19.3 10-20 Random Glucose 93 70-99 mg/dl Calcium Level 8.2 8.5-10.1 mg/dl Total Bilirubin 0.2 0.2-1 mg/dl Direct Bilirubin < 0.1 0-0.2 mg/dl Aspartate Amino Transf (AST/SGOT) 9 15-37 U/L Alanine Aminotransferase (ALT/SGPT) 13 12-78 U/L Alkaline Phosphatase 63 45-117 U/L Total Protein 6.6 6.4-8.2 gm/dl Albumin 3.4 3.4-5.0 gm/dl EKG: Was read by myself and reviewed with Dr. Mcclain; shows sinus rhythm with ventricular rate of 69 bpm. Short TN interval to [address] changes indicating ischemia, injury or infarction. Medical records were reviewed and no previous EKGs were found for comparison. Chest X-Rays: Were read by myself and the radiologist showing no acute infiltrates, effusions or pneumothorax. Normal heart silhouette and bony anatomy. Patient was hydrated with normal saline. Patient was reassessed multiple times during her stay in the emergency department. Patient's case was reviewed with Dr. Mcclain; we agreed on diagnostic approach , treatment, disposition and plan. Patient was educated about today's findings and instructed on her treatment plan ; she verbalized understanding and agreement with this plan. Clinical Impression: Near syncope. Decision-Making: Initially my differential diagnosis I considered arrhythmia, hypoglycemia, dehydration, electrolyte abnormality, metabolic disturbance and other causes. Disposition: Patient discharged home in stable condition accompanied by male friend; prior to departure she was reassessed and subjectively reported she was feeling better. Plan: Patient is encouraged to continue her current medications as prescribed. Patient was encouraged to stay well-hydrated with increased clear fluids and to avoid her excessive caffeine use. Patient was encouraged to avoid driving for the next 48 hours and rest today. Case management was consulted and a follow-up appointment with the primary care provider was made for tomorrow. Patient is encouraged return ED for worsening symptoms, actual episodes of syncope or any new/concerning symptoms.
== END 2017-04-12 12:19 | disposition home or self-care (01) ==
LOC: C.EDB 09:16
DX: R55 Syncope and collapse (principal); F32.9 Major depressive disorder, single episode, unspecified; F41.9 Anxiety disorder, unspecified; F17.200 Nicotine dependence, unspecified, uncomplicated; Z98.51 Tubal ligation status; Z98.890 Other specified postprocedural states; Z88.5 Allergy status to narcotic agent; Z88.8 Allergy status to other drugs, medicaments and biological substances

== ENCOUNTER → 2017-04-13 | Outpatient (CLI) | payer OTHER ==
[~2017-04-13] MED LIST changes: -ACET325T96 PO; -IBUP-1428 PO; +OXYC1TAB3 PO
== END | disposition home or self-care (01) ==
LOC: C.LABBC 12:27
PROVIDERS: ATTEND Physician Assistant
DX: E03.9 Hypothyroidism, unspecified (principal)